=== PATIENT | female | born 1975 | race Caucasian/White ===

== ENCOUNTER 2017-01-02 19:44 | Inpatient (IN) | payer BC, MEDICARE ==
[~2017-01-02] VITALS: Ht 167.6 cm; Wt 153.3 kg
--- NOTE | ~2017-01-02 | PR ---
[place], [place] PROGRESS NOTE NAME: JORGE MCGARRY UNIT #: [id number] ROOM: 506 DOCTOR: MAKSIM DOYLE MD BIRTHDATE: [birth year] DOS: 01/05/2017 SUBJECTIVE: She has been n.p.o. past midnight for bronchoscopy for the assessment of small hemoptysis intermittently. She has been noted off the anticoagulation with the Lovenox for last evening dose. OBJECTIVE: VITAL SIGNS: For the patient which has been recorded shows normal temperature, respiratory rate 20, heart rate of 104, blood pressure 128/77 to 123/56. The pulse oxygen saturation for the patient recorded on 2 L nasal cannula was 100% saturation. HEENT: Examination shows no acute change. NECK: Supple. CARDIOVASCULAR: S1, S2 audible. LUNGS: Noted without any wheezing or crackles. ABDOMEN: Soft, obese, nontender. EXTREMITIES: Showed chronic severe obesity. LABORATORY DATA: CBC today: WBC count 4.4, hemoglobin 8.4, hematocrit 28.7, platelet count 255,000. BMP of the patient this morning, normal BUN and creatinine. PT/INR noted as 1.0 and PTT was normal. IMPRESSION: 1. The patient who has been currently noted with intermittent small hemoptysis. Etiology remains unclear. 2. History of past thromboembolism, currently noted anticoagulation temporarily on hold for the bronchoscopy. 3. History of morbid obesity as well. 4. Leukopenia and anemia. PLAN OF MANAGEMENT: No changes in the plan of treatment at this time will be necessary. Proceed with bronchoscopy. Continue the patient's current medical treatment as in progress. Usual care. Continue oral antibiotic for the medical treatment and suspected acute bacterial bronchitis. [place], [place] PROGRESS NOTE NAME: JORGE MCGARRY UNIT #: [id number] ROOM: 506 DOCTOR: MAKSIM DOYLE MD BIRTHDATE: [birth year] MAKSIM LOVE MD CM:PNTRANS [phone] MAKSIM KWON MD 01/05/17 1241 interface
--- NOTE | ~2017-01-02 | CON ---
[place], [place] REPORT OF CONSULTATION NAME: JORGE MCGARRY [facility] #: [id number] UNIT #: [id number] ROOM: 506 DOCTOR: MAKSIM DOYLE MD BIRTHDATE: [birth year] DOS: 01/03/2017 CONSULTATION REQUESTED BY: Hospitalist services. REASON FOR CONSULTATION: Assessment of the current symptoms of hemoptysis. HISTORY OF PRESENT ILLNESS: This is a 41-year-old white female who has been known to me with past history of hypercoagulable disorder and pulmonary embolism. She presented to the Emergency Room, admitted to the hospital in 01/03/2017. She reported symptoms of right-sided chest pain with cough that was later noted with hemoptysis. She has shown me in the tissues some clotted blood that does not appear to be fresh at this time. Hemoptysis small in amount intermittently for the past 24 hours. Chest pain the patient described in the right lower portion of the chest without any radiation. She denies symptoms of chest trauma. The patient denies symptoms of wheezing. REVIEW OF SYSTEMS: CONSTITUTIONAL: Does complain of fatigue and tiredness, fever or chills. EYES: Denies any burning, redness, or tenderness. EARS, NOSE, THROAT SYMPTOMS: No sore throat, hoarseness, otalgia, postnasal drainage. CARDIOVASCULAR: Denies anginal pain, edema or pain of the lower extremities. GASTROINTESTINAL: Dysphagia, nausea, vomiting, diarrhea, abdominal pain, hematemesis, melena, or hematochezia. SKIN: Denies lesions or rashes. CENTRAL NERVOUS SYSTEM: Cranial nerves 2-12 intact. No focal deficits. MUSCULOSKELETAL: Does not show any acute deformities or lesions. Remaining systems were reviewed with the patient, they were noted all negative. PAST MEDICAL HISTORY: 1. This patient was known with history of past pulmonary embolism and hypercoagulable disorder. 2. Chronic severe obesity. 3. Hiatal hernia. 4. Gastroesophageal reflux. 5. Irritable bowel syndrome. 6. History of ovarian cancer. 7. Chronic back pain. 8. Polycystic kidney disease. 9. Migrainous headache. 10. Uncomplicated moderate persistent bronchial asthma. PAST SURGICAL HISTORY: 1. Complete hysterectomy with the diagnosis of ovarian cancer at the age of [age] years old, treated, not in remission. 2. History of cholecystectomy. 3. Therapeutic bronchoscopies. SOCIAL HISTORY: The patient lives at home. Denies history of alcohol or [place], [place] REPORT OF CONSULTATION NAME: JORGE MCGARRY [facility] #: [id number] UNIT #: [id number] ROOM: [facility] DOCTOR: MAKSIM DOYLE MD BIRTHDATE: [birth year] illicit drug use or tobacco use. FAMILY HISTORY: Mother is living with effective V Leiden deficiency. She does have a history of a stroke. Father at the age of 5858 years old from complication related to acute pulmonary embolism. MEDICATIONS: Currently administered medications noted use of vitamin D, Wellbutrin, Zyrtec, Prozac, pravastatin, Prazosin, Bentyl, omeprazole, Dulera, DuoNeb, therapeutic dose of subcutaneous heparin, Klonopin, and other p.r.n. medications administration. DRUG ALLERGIES: 1. IVP DYE. 2. IMITREX. 3. TORADOL. 4. VISIPAQUE. PHYSICAL EXAMINATION: GENERAL: This is a 41-year-old female, who has been currently sitting on the bed, without any distress. Height of 5 feet 6 inches, weight of 338 pounds, BMI 54.5. VITAL SIGNS: For the patient which has been recorded showed normal temperature, respiratory rate 14-20, heart rate of 93-110, blood pressure 140/84-125/86. Pulse oxygen saturation of the patient noted on room air 97% saturation. HEENT: Examination shows chronic severe obesity. NECK: Supple. Head was atraumatic. CARDIOVASCULAR SYSTEM: S1, S2 audible. LUNGS: Without any wheeze or crackles. ABDOMEN: Soft, severe obesity. Bowel sound present. EXTREMITIES: Show no edema, clubbing, cyanosis. CENTRAL NERVOUS SYSTEM: Cranial nerves 2-12 intact. MUSCULOSKELETAL: No deformities. SKIN: No lesions or rashes. LABORATORY DATA: The patient's CBC yesterday, hemoglobin 10.5, hematocrit 35.7, WBC count normal, platelet count normal at 280,000. PT/PTT of patient on 01/01/2017 was normal. CMP on 01/02/2017, noted glucose 120, BUN and creatinine was normal. Troponin for the patient noted normal. D-dimer 0.50 that was done this morning. CMP this morning, patient noted normal BUN and creatinine. Other CMP grossly normal. CBC this morning, WBC count 3.4, hemoglobin 9.8, hematocrit 33.8, platelet count 275,000. The chest x-ray of the patient that was done, 1 view, in the Emergency Room, somewhat limited study, but there was no acute pulmonary infiltration. Lungs was not noted to be hyperinflated. IMPRESSION: 1. The patient has been currently admitted to the hospital noted with hemoptysis. The patient with possibility of acute bronchitis as well. The chest x-ray does not show any abnormalities at the present time. 2. History of chronic hypercoagulable disorder and pulmonary embolism. The patient currently treated with therapeutic unfractionated heparin. [place], [place] REPORT OF CONSULTATION NAME: JORGE MCGARRY UNIT #: [id number] ROOM: [facility] DOCTOR: MAKSIM DOYLE MD BIRTHDATE: [birth year] 3. History of severe morbid obesity. 4. History of bronchial asthma. PLAN OF TREATMENT: Start the patient on oral antibiotics. At this time, the doxycycline 100 mg p.o. b.i.d. Ordered the sputum for Gram stain and culture. Bronchoscopy patient will be planned to be done on Thursday morning. If the hemoptysis worsens, routine bronchoscopy could be changed to an earlier time. Other supportive therapy, plan of management. Usual care. Further treatment changes will be done based on the progression of the illness. The assessment, management discussed with Dr. Alex, who is the primary care attending for patient today. She has been kept n.p.o. for potential bronchoscopy, which will be changed to her usual diet and n.p.o. past midnight status will be done from Thursday midnight. Thanks for allowing me to participate in the care of this patient. MAKSIM LOVE MD CM:CONSTR:REPORT OF CONSULTATION [id number] 01/04/17 0901 interface
--- NOTE | ~2017-01-02 | PROC NOTE ---
[place], [place] PROCEDURE NOTE NAME: JORGE MCGARRY [facility] #: [id number] UNIT #: [id number] ROOM: 506 DOCTOR: IVAN KWON MD,MAKSIM BIRTHDATE: [birth year] DOS: 01/05/2017 PROCEDURE: Fiberoptic bronchoscopy. PREOPERATIVE DIAGNOSES: Inability to swallow, hemoptysis. POSTOPERATIVE DIAGNOSES: Finding of tracheobronchitis. There were no endobronchial obstructive lesions or active hemoptysis. PROCEDURE DESCRIPTION: Informed consent obtained for the patient. The patient brought to the OR and placed in supine position. Conscious sedation administered by the Anesthesia Department. After achieving appropriate sedation, airway introduced into the mouth. Bronchoscope advanced through the airway into laryngeal area. Epiglottis and vocal cords were seen. Bronchoscope advanced to the vocal cord and tracheal lumen. Tracheal lumen was identified. The tracheal lumen was noted without any evidence of old or new bleeding. Small specks of thick mucus with purulent secretion was present in the tracheal lumen, suctioned out to the hakeem level. Right upper, right middle, right lower, left upper, lingular lower lobe bronchi were noted with similar secretions as noted in the tracheal lumen, suctioned out with normal saline wash. There were no endobronchial obstructing lesions noted. There were no signs of any active acute or chronic bleeding identified in the major airways. Procedure was tolerated by the patient. Postoperative findings will be discussed with the patient once the patient recovers the effects of acute sedation. Based on the current assessment, no change in treatment will be needed. The patient will be continued on anticoagulation that will be resumed today as well. MAKSIM LOVE MD CM:PROCNOTE:PROCEDURE NOTE [id number] MAKSIM KWON MD
--- NOTE | ~2017-01-02 | PR ---
[place], [place] PROGRESS NOTE NAME: JORGE MCGARRY [facility] #: [id number] UNIT #: [id number] ROOM: 506 DOCTOR: VIAN KWON MD,MAKSIM BIRTHDATE: [birth year] DOS: 01/04/2017 PULMONARY PROGRESS NOTE SUBJECTIVE: She has been noted without any acute respiratory distress at this time, has noted hemoptysis. Small amount last evening. The patient denies symptoms of chest pain or abdominal pain. OBJECTIVE: VITAL SIGNS: Normal temperature, respiratory rate 20, heart rate 118-91, blood pressure 118/74 to 120/65. Pulse oxygen saturation on room air 96% saturation. HEENT: Examination shows no acute change. NECK: Supple. CARDIOVASCULAR: S1, S2 is audible. LUNGS: The patient was noted without any wheeze or crackles. ABDOMEN: Soft, nontender. EXTREMITIES: Chronic obesity. LABORATORY DATA: Platelet function assay was noted as normal. PT/PTT yesterday were noted as normal. IMPRESSION: 1. The patient with intermittent hemoptysis. The patient with acute tracheobronchitis. 2. Past history of pulmonary embolism. 3. Severe chronic morbid obesity. PLAN OF TREATMENT: Hold off the Lovenox of the patient's evening dose. The patient for bronchoscopy to resume the Lovenox after the bronchoscopy appeared to be with no complications. In the meantime, continue other treatment, plan and management. Usual care. Supportive therapy, other care. Usual therapies. MAKSIM LOVE MD CM:PNTRANS [id number] MAKSIM KWON MD 01/05/17 0049 interface
[~2017-01-02 19:44] MED LIST: ADVAIR 500/501 EA INH; ALBUTEROL0.09 MG/A1 INH; ALBUTEROL0.63 MG/3 INH; AMBIEN10 M1 PO; AMOXICILLIN500 M3 PO; ANTIBIOTIC; BENTYL10 MG PO; CYCLOBENZAPRINE10 MG PO; Coumadin5 MG PO; GLUCOSAMINE DA1 EACH PO; KLONOPIN1 M1 PO; LIDODERM 5% PATC1 EA PO; LOVENOX150 MG/ML SC; OXYGEN NAS; PRILOSEC40 M1 PO; PROVENTIL0.09 MG/A1 INH; PROZAC20 MG PO; PROZAC40 M1 PO; ULTRAM50 MG PO; VIBRAMYCIN100 MG PO; ZITHROMAX500 MG PO; ZOFRAN ODT4 MG SL; ZYRTEC10 MG PO
[2017-01-02 20:00] VITALS: BP 137/101
[2017-01-02 20:30] VITALS: BP 126/90
[2017-01-02] MEDS ORDERED: KLONOPIN2 M1 PO (20:42)
[2017-01-02 21:08] VITALS: BP 126/99
[2017-01-02 21:25] LABS: BASO % 0.8 % (0.0-1.0); EOS % 0.4 % (1.0-4.0); HEMATOCRIT 35.7 % (37.0-47.0); HEMOGLOBIN 10.5 g/dl (12.0-16.0); LYMPH # 1.3 10*3/uL (1.3-4.4); LYMPH % 26.4 % (27.0-41.0); MEAN CORPUSCULAR HGB 24.4 pg (27.0-31.0); MEAN CORPUSCULAR HGB CONC 29.4 g/dl (33.0-37.0); MEAN PLATELET VOLUME 10.9 fl (9.6-12.3); MONO # 0.5 10*3/uL (0.1-1.0); MONO % 10.3 % (3.0-9.0); NEUT # 3.1 10*3/uL (2.3-7.9); NEUT % 61.9 % (47.0-73.0); PLATELET COUNT AUTOMATED 280 10*3/uL (130-400); RED CELL DISTRI WIDTH 18.1 % (0-14.5)
[2017-01-02 21:35] LABS: PROTHROMBIN TIME 11.1 SECONDS (9.0-12.4)
[2017-01-02 21:40] LABS: ALBUMIN 3.3 gm/dl (3.1-4.5); ALKALINE PHOSPHATASE 123 U/L (45-117); BILIRUBIN, TOTAL 0.3 mg/dl (0.2-1.0); BUN 12 mg/dl (7-24); CARBON DIOXIDE 22 mmol/L (21-32); CHLORIDE 108 mmol/L (98-107); EST GLOM FILT AFRICAN AMERICAN > 60 ml/min; GLUCOSE 123 mg/dL (65-99); MAGNESIUM 1.8 mg/dL (1.5-2.1); POTASSIUM 3.6 mmol/L (3.5-5.1); SGOT/AST 33 IU/L (3-35); SGPT/ALT 35 U/L (12-78); SODIUM 145 mmol/L (136-145); TOTAL PROTEIN 7.2 gm/dL (6.4-8.2)
[2017-01-02 21:41] LABS: TROPONIN I < 0.015 ng/ml (<0.045)
[2017-01-02 22:28] VITALS: BP 137/91
[2017-01-02 23:29] VITALS: BP 115/81
[2017-01-03 00:22] VITALS: BP 138/90
[2017-01-03 01:15] VITALS: BP 148/84
[2017-01-03 07:38] LABS: ALBUMIN 3.4 gm/dl (3.1-4.5); BUN 13 mg/dl (7-24); CARBON DIOXIDE 21 mmol/L (21-32); CHLORIDE 108 mmol/L (98-107); CHOLESTEROL 178 mg/dL (<200); EST GLOM FILT AFRICAN AMERICAN > 60 ml/min; FREE T4 0.93 ng/dl (0.76-1.46); GLUCOSE 93 mg/dL (65-99); POTASSIUM 3.9 mmol/L (3.5-5.1); SGOT/AST 44 IU/L (3-35); SGPT/ALT 40 U/L (12-78); SODIUM 143 mmol/L (136-145); TRIGLYCERIDES 174 mg/dl (<150); VLDL CHOLESTEROL 35 mg/dL (6-40)
[2017-01-03 07:46] LABS: ALKALINE PHOSPHATASE 129 U/L (45-117); BILIRUBIN, TOTAL 0.4 mg/dl (0.2-1.0); HDL CHOLESTEROL 58 mg/dl (40-60); LDL CHOLESTEROL 85 mg/dL (9-159); TOTAL PROTEIN 7.3 gm/dL (6.4-8.2)
[2017-01-03 08:00] VITALS: BP 125/86
[2017-01-03 08:45] LABS: BASO # 0.1 10*3/uL (0.0-0.1); BASO % 1.5 % (0.0-1.0); EOS % 0.6 % (1.0-4.0); HEMATOCRIT 33.8 % (37.0-47.0); HEMOGLOBIN 9.8 g/dl (12.0-16.0); LYMPH # 1.2 10*3/uL (1.3-4.4); LYMPH % 34.8 % (27.0-41.0); MEAN CELL VOLUME 83.7 fl (81.0-99.0); MEAN CORPUSCULAR HGB 24.3 pg (27.0-31.0); MEAN PLATELET VOLUME 11.1 fl (9.6-12.3); MONO # 0.4 10*3/uL (0.1-1.0); MONO % 11.9 % (3.0-9.0); NEUT # 1.7 10*3/uL (2.3-7.9); NEUT % 50.9 % (47.0-73.0); PLATELET COUNT AUTOMATED 275 10*3/uL (130-400); RED BLOOD COUNT 4.04 10*6/uL (4.10-5.10); RED CELL DISTRI WIDTH 17.8 % (0-14.5); WHITE BLOOD COUNT 3.4 10*3/uL (4.8-10.8)
[2017-01-03 09:18] LABS: VITAMIN D, 25-HYDROXY 5.9 ng/mL (30-100)
[2017-01-03 09:46] LABS: INTERNATIONAL NORM RATIO 1.1 (2.0-3.5); PROTHROMBIN TIME 11.4 SECONDS (9.0-12.4)
[2017-01-03] MEDS ORDERED: WELLBUTRIN XL150 MG PO (09:57)
[2017-01-03] MEDS ORDERED: CYCLOBENZAPRINE10 MG PO (09:58)
[2017-01-03] MEDS ORDERED: MINIPRESS1 MG PO (09:59)
[2017-01-03 10:15] LABS: HEMOGLOBIN A1c 5.4 % (4.8-5.6)
[2017-01-03 12:00] VITALS: BP 141/76
[2017-01-03 16:00] VITALS: BP 128/75
[2017-01-03 20:00] VITALS: BP 133/84
[2017-01-04] VITALS: BP 118/74
[2017-01-04 07:12] LABS: COL/EPI 96 SECONDS (86-157)
[2017-01-04 08:00] VITALS: BP 128/65
[2017-01-04 12:00] VITALS: BP 114/94
[2017-01-04 16:00] VITALS: BP 132/80
[2017-01-04 20:00] VITALS: BP 131/81; BP 145/87
[2017-01-05] VITALS (9 sets, daily range): BP systolic 99–144; BP diastolic 46–90
[2017-01-05 06:26] LABS: BASO % 0.7 % (0.0-1.0); EOS % 0.5 % (1.0-4.0); HEMATOCRIT 28.7 % (37.0-47.0); HEMOGLOBIN 8.4 g/dl (12.0-16.0); LYMPH # 0.8 10*3/uL (1.3-4.4); LYMPH % 16.9 % (27.0-41.0); MEAN CELL VOLUME 84.9 fl (81.0-99.0); MEAN CORPUSCULAR HGB 24.9 pg (27.0-31.0); MEAN CORPUSCULAR HGB CONC 29.3 g/dl (33.0-37.0); MEAN PLATELET VOLUME 11.4 fl (9.6-12.3); MONO # 0.4 10*3/uL (0.1-1.0); MONO % 8.4 % (3.0-9.0); NEUT # 3.3 10*3/uL (2.3-7.9); NEUT % 73.3 % (47.0-73.0); PLATELET COUNT AUTOMATED 255 10*3/uL (130-400); RED BLOOD COUNT 3.38 10*6/uL (4.10-5.10); RED CELL DISTRI WIDTH 17.6 % (0-14.5); WHITE BLOOD COUNT 4.4 10*3/uL (4.8-10.8)
[2017-01-05 06:55] LABS: BUN 11 mg/dl (7-24); CARBON DIOXIDE 28 mmol/L (21-32); CHLORIDE 104 mmol/L (98-107); EST GLOM FILT AFRICAN AMERICAN > 60 ml/min; GLUCOSE 105 mg/dL (65-99); POTASSIUM 3.6 mmol/L (3.5-5.1); SODIUM 141 mmol/L (136-145)
[2017-01-05 07:01] LABS: PROTHROMBIN TIME 11.1 SECONDS (9.0-12.4)
[2017-01-06] VITALS: BP 123/58
[2017-01-06 08:00] VITALS: BP 131/81
[2017-01-06 12:00] VITALS: BP 137/67
[2017-01-06 14:08] LABS: ACID FAST SPEC PROCESSING Concentration (.)
[2017-01-06 16:00] VITALS: BP 123/82
[2017-01-06 20:00] VITALS: BP 106/60
[2017-01-07] VITALS: BP 111/68
[2017-01-07 06:38] LABS: HEMOGLOBIN 8.8 g/dl (12.0-16.0); MEAN CELL VOLUME 85.2 fl (81.0-99.0); RED BLOOD COUNT 3.64 10*6/uL (4.10-5.10); WHITE BLOOD COUNT 10.1 10*3/uL (4.8-10.8)
[2017-01-07 06:39] LABS: BASO % 0.1 % (0.0-1.0); IG # 0.1 10*3/uL (0.0-0.1); LYMPH # 0.9 10*3/uL (1.3-4.4); LYMPH % 9.3 % (27.0-41.0); MEAN CORPUSCULAR HGB 24.2 pg (27.0-31.0); MEAN CORPUSCULAR HGB CONC 28.4 g/dl (33.0-37.0); MEAN PLATELET VOLUME 11.6 fl (9.6-12.3); MONO # 0.9 10*3/uL (0.1-1.0); MONO % 8.5 % (3.0-9.0); NEUT # 8.2 10*3/uL (2.3-7.9); NEUT % 81.1 % (47.0-73.0); PLATELET COUNT AUTOMATED 262 10*3/uL (130-400); RED CELL DISTRI WIDTH 18.6 % (0-14.5)
[2017-01-07 07:15] LABS: CHLORIDE 109 mmol/L (98-107); POTASSIUM 3.6 mmol/L (3.5-5.1); SODIUM 146 mmol/L (136-145)
[2017-01-07 07:25] LABS: BUN 8 mg/dl (7-24); CARBON DIOXIDE 23 mmol/L (21-32); EST GLOM FILT AFRICAN AMERICAN > 60 ml/min; GLUCOSE 136 mg/dL (65-99)
== END 2017-01-07 06:57 | disposition left against medical advice (07) | DRG 202 ==
LOC: ED 19:44 → EDHOLD 01-03 00:05 → 5E 01-03 00:05
PROVIDERS: Emergency Medicine; Hospitalist; Internal Medicine; Internal Medicine Critical Care Medicine; Student in an Organized Health Care Education/Training Program
PROC: 0BC18ZZ Extirpation of Matter from Trachea, Via Natural or Artificial Opening Endoscopic (ICD-10-PCS; 2017-01-05)
PROC: 0BC78ZZ Extirpation of Matter from Left Main Bronchus, Via Natural or Artificial Opening Endoscopic (ICD-10-PCS; 2017-01-05)
PROC: 0BC98ZZ Extirpation of Matter from Lingula Bronchus, Via Natural or Artificial Opening Endoscopic (ICD-10-PCS; 2017-01-05)
PROC: 0BC88ZZ Extirpation of Matter from Left Upper Lobe Bronchus, Via Natural or Artificial Opening Endoscopic (ICD-10-PCS; 2017-01-05)
PROC: 0BC68ZZ Extirpation of Matter from Right Lower Lobe Bronchus, Via Natural or Artificial Opening Endoscopic (ICD-10-PCS; 2017-01-05)
PROC: 0BC58ZZ Extirpation of Matter from Right Middle Lobe Bronchus, Via Natural or Artificial Opening Endoscopic (ICD-10-PCS; 2017-01-05)
PROC: 0BC48ZZ Extirpation of Matter from Right Upper Lobe Bronchus, Via Natural or Artificial Opening Endoscopic (ICD-10-PCS; 2017-01-05)
PROC: 02HV33Z Insertion of Infusion Device into Superior Vena Cava, Percutaneous Approach (ICD-10-PCS; principal; 2017-01-06)
PROC: B5181ZA Fluoroscopy of Superior Vena Cava using Low Osmolar Contrast, Guidance (ICD-10-PCS; 2017-01-06)
PROC: B54MZZA Ultrasonography of Right Upper Extremity Veins, Guidance (ICD-10-PCS; 2017-01-06)
DX: J40 Bronchitis, not specified as acute or chronic (principal); R65.10 Systemic inflammatory response syndrome (SIRS) of non-infectious origin without acute organ dysfunction; E87.8 Other disorders of electrolyte and fluid balance, not elsewhere classified; E44.0 Moderate protein-calorie malnutrition; F33.9 Major depressive disorder, recurrent, unspecified; Z68.43 Body mass index [BMI] 50.0-59.9, adult; R07.9 Chest pain, unspecified; E66.01 Morbid (severe) obesity due to excess calories; F41.9 Anxiety disorder, unspecified; K21.9 Gastro-esophageal reflux disease without esophagitis; Z86.711 Personal history of pulmonary embolism; Z82.3 Family history of stroke; E78.00 Pure hypercholesterolemia, unspecified; R74.0 Nonspecific elevation of levels of transaminase and lactic acid dehydrogenase [LDH]; E78.5 Hyperlipidemia, unspecified; Z85.43 Personal history of malignant neoplasm of ovary; Z90.710 Acquired absence of both cervix and uterus; Z82.49 Family history of ischemic heart disease and other diseases of the circulatory system; Z88.8 Allergy status to other drugs, medicaments and biological substances; Z91.041 Radiographic dye allergy status; D64.9 Anemia, unspecified; E55.9 Vitamin D deficiency, unspecified; K58.9 Irritable bowel syndrome, unspecified; G43.909 Migraine, unspecified, not intractable, without status migrainosus; J45.40 Moderate persistent asthma, uncomplicated; D72.819 Decreased white blood cell count, unspecified